=== PATIENT | female | born 1950 | race Caucasian/White ===

== ENCOUNTER 2021-08-09 09:09 | Day surgery (SDC) | payer BC, OTHER ==
[2021-08-02 14:23] VITALS: BMI 46.9
[2021-08-09] MEDS ORDERED: CELECOXIB 200 MG CAPSULE PO ONE (09:22)
[2021-08-09] MEDS ORDERED: MIDAZOLAM HCL 2 MG/2 ML SINGLE DOSE VIAL ONE ×2 (10:00→12:36)
[2021-08-09] MEDS ORDERED: BUPIVACAINE LIPOSOME/PF (EXPAREL) 266 MG/20 ML VIAL ONE (10:00)
[2021-08-09] MEDS ORDERED: SODIUM CHLORIDE 0.9% P/F 10 ML VIAL IJ ONE (10:01)
[2021-08-09] MEDS ORDERED: BUPIVACAINE HCL/PF 0.5% (5MG/ML) 10 ML VIAL ONE ×2 (10:01→10:44)
[2021-08-09] MEDS ORDERED: VANCOMYCIN 1,000 MG VIAL (RESTRICTED TO ID ONLY) ONE (10:31)
[2021-08-09] MEDS ORDERED: ceFAZolin SODIUM 1 GM VIAL ONE ×2 (10:31→21:28)
[2021-08-09] MEDS ORDERED: DEXMEDETOMIDINE HCL 200 MCG/2 ML IVPB ONE (10:44)
[2021-08-09] MEDS ORDERED: CEFAZOLIN 3 GM in DEXTROSE 5%-WATER - 100 ML IVPB ONE (11:00)
[2021-08-09] MEDS ORDERED: TRANEXAMIC ACID 1000 MG/10 ML VIAL IVPUSH ONE (11:00)
[2021-08-09] MEDS ORDERED: MAG HYDROX/AL HYDROX/SIMETH 30 ML UNIT-DOSE CUP PO PRN (11:51)
[2021-08-09] MEDS ORDERED: MAGNESIUM HYDROX 2400MG/30ML ORAL SUSPENSION 30 ML CUP PO PRN (11:51)
[2021-08-09] MEDS ORDERED: ONDANSETRON 4 MG/2 ML VIAL IVPUSH PRN (11:51)
[2021-08-09] MEDS ORDERED: LACTATED RINGERS SOLUTION 1,000 ML IV SCH (12:00)
[2021-08-09] MEDS ORDERED: VANCOMYCIN 1,000 MG VIAL (RESTRICTED TO ID ONLY) IVPB ONE (13:15)
[2021-08-09] MEDS: ACETAMINOPHEN 1000 MG/100 ML VIAL IVPB ONE ×2 (14:10→15:32)
[2021-08-09] MEDS: ACETAMINOPHEN 500 MG TABLET (FP) PO SCH ×2 (14:10→22:00)
[2021-08-09] MEDS: KETOROLAC TROMETHAMINE 30 MG/1 ML VIAL IVPUSH SCH ×3 (14:33→21:15)
[2021-08-09] MEDS ORDERED: ONDANSETRON 4 MG/2 ML VIAL ONE (14:48)
[2021-08-09] MEDS: GABAPENTIN 100 MG CAPSULE PO SCH ×2 (15:35→18:07)
[2021-08-09] MEDS: oxyCODONE HCL 5 MG TABLET PO PRN ×2 (17:29→18:07)
[2021-08-09] MEDS: CEFAZOLIN 2 GM in DEXTROSE 5%-WATER - 50 ML IVPB SCH (20:00)
[2021-08-09] MEDS ORDERED: DEXTROSE 5%-WATER - 50 ML IVPB ONE (21:28)
[2021-08-09] MEDS: GABAPENTIN 300 MG CAPSULE PO SCH (22:00)
[2021-08-09] MEDS: SENNOSIDES/DOCUSATE COMBO (SENNA PLUS) TABLET (UD) PO SCH (22:00)
[2021-08-09] MEDS ORDERED: PATIENT'S OWN MEDICATION (NON-FORMULARY) (Simvastatin 40 MG Tablet) PO SCH (22:00)
[2021-08-09] MEDS: ATORVASTATIN CA 20 MG TABLET (FP) PO SCH (22:00)
[2021-08-10] MEDS: oxyCODONE HCL 5 MG TABLET PO PRN ×3 (02:35→21:44)
[2021-08-10] MEDS: ACETAMINOPHEN 500 MG TABLET (FP) PO SCH ×4 (02:36→22:02)
[2021-08-10] MEDS ORDERED: DEXTROSE 5%-WATER - 50 ML IVPB ONE (03:03)
[2021-08-10] MEDS ORDERED: ceFAZolin SODIUM 1 GM VIAL ONE (03:03)
[2021-08-10] MEDS: CEFAZOLIN 2 GM in DEXTROSE 5%-WATER - 50 ML IVPB SCH (03:26)
[2021-08-10] MEDS: GABAPENTIN 300 MG CAPSULE PO SCH ×3 (06:37→21:40)
[2021-08-10] MEDS ORDERED: PATIENT'S OWN MEDICATION (NON-FORMULARY) (Losartan/Hydrochlorothiazide [Losartan-Hctz 100- PO SCH (10:00)
[2021-08-10] MEDS: SENNOSIDES/DOCUSATE COMBO (SENNA PLUS) TABLET (UD) PO SCH ×2 (10:44→21:40)
[2021-08-10] MEDS: LOSARTAN 50MG/HCTZ 12.5MG 1 TAB PO SCH (10:44)
[2021-08-10] MEDS: LOSARTAN POTASSIUM 50 MG TABLET PO SCH (10:45)
[2021-08-10] MEDS: MULTIVITAMINS (DAILY MVI) TABLET (FP) PO SCH (10:45)
[2021-08-10] MEDS: PANTOPRAZOLE 40 MG TABLET PO SCH (10:45)
[2021-08-10] MEDS: ASPIRIN 325 MG TABLET PO SCH (10:45)
[2021-08-10] MEDS: ATORVASTATIN CA 20 MG TABLET (FP) PO SCH (21:40)
[2021-08-11] MEDS: ACETAMINOPHEN 500 MG TABLET (FP) PO SCH ×4 (00:13→09:09)
[2021-08-11] MEDS: GABAPENTIN 300 MG CAPSULE PO SCH (05:15)
[2021-08-11] MEDS: oxyCODONE HCL 5 MG TABLET PO PRN ×2 (05:15→09:07)
[2021-08-11 06:14] VITALS: BP 123/68; PULSE 93; TEMP 100.2
[2021-08-11 08:21] LABS: HEMATOCRIT 34.7 % (32.4-45.2); HEMOGLOBIN 11.6 GM/dl (10.7-15.3); MCHC 33.4 g/dl (32.0-36.0); MEAN CELL VOLUME 83.8 fl (80-96); MEAN PLT VOLUME 10.5 fl (7.5-11.1); PLATELET COUNT 162 10^3/uL (134-434); RBC 4.13 M/mm3 (3.60-5.2); RDW 14.1 % (11.6-15.6); WHITE BLOOD COUNT 9.4 K/mm3 (4.0-10.8)
[2021-08-11] MEDS: LOSARTAN 50MG/HCTZ 12.5MG 1 TAB PO SCH (09:06)
[2021-08-11] MEDS: MULTIVITAMINS (DAILY MVI) TABLET (FP) PO SCH (09:06)
[2021-08-11] MEDS: SENNOSIDES/DOCUSATE COMBO (SENNA PLUS) TABLET (UD) PO SCH (09:06)
[2021-08-11] MEDS: ASPIRIN 325 MG TABLET PO SCH (09:07)
[2021-08-11] MEDS: PANTOPRAZOLE 40 MG TABLET PO SCH (09:07)
[2021-08-11] MEDS: LOSARTAN POTASSIUM 50 MG TABLET PO SCH (09:07)
== END 2021-08-11 11:55 | disposition home health service (06) ==
LOC: FASUSAT 09:09 → EDSTATUS 09:30 → FM/S 15:28 → FASUSAT 15:28
PROVIDERS: ATTEND Orthopaedic Surgery
PROC: 8E0YXBZ Computer Assisted Procedure of Lower Extremity (ICD-10-PCS; 2021-08-09)
PROC: 8E0Y0CZ Robotic Assisted Procedure of Lower Extremity, Open Approach (ICD-10-PCS; 2021-08-09)
PROC: 0SRC0J9 Replacement of Right Knee Joint with Synthetic Substitute, Cemented, Open Approach (ICD-10-PCS; principal; 2021-08-09 12:09)
DX: M17.11 Unilateral primary osteoarthritis, right knee (principal); I10 Essential (primary) hypertension; E78.5 Hyperlipidemia, unspecified; E66.9 Obesity, unspecified; Z68.42 Body mass index [BMI] 45.0-49.9, adult
CPT/HCPCS: 20985; 27447; C1776; S2900; 36415; 73560-TC-RT-FY; 85027; 94760; 97010-GP; 97116-GP; 97161-GP; J0131

== ENCOUNTER 2022-08-09 04:15 | Day surgery (SDC) | payer BC ==
[2022-08-07 15:15] VITALS: BMI 50.1
[~2022-08-09 04:15] MED LIST: ACETAMINOPHEN 325 MG TABLET (FP) PO PRN; BSS (NA/CA/MG/K) BALANCED SALT SOLUTION OPHTH SOLN 15 ML BOTTLE OS ONE; CHONDROITIN SU A/HYALUR SOD 1 KIT IO ONE; CYCLOPENTOLATE HCL 1% OPHTH SOLN 2 ML BOTTLE OP SCH; EPINEPHrine/PF 1 MG/1 ML (1:1,000) AMPULE SQ ONE; KETOROLAC TROMETHAMINE 0.5% EYE DROP 1 DROP DROPS OP SCH; LIDOCAINE HCL 1% PRESERVATIVE FREE - 30ML VIAL IO ONE; OFLOXACIN 0.3% OPHTHALMIC SOLUTION 5 ML BOTTLE OP SCH; PHENYLEPHRINE 2.5% OPHTH SOLN 15 ML BOTTLE OP SCH; POVIDONE-IODINE 5% OPHTHALMIC PREP 30 ML SOLUTION OS ONE; TETRACAINE 0.5% HCL 0.6ML DROPPER.BOTTLE OS ONE; TROPICAMIDE 1% OPHTH SOLN 15 ML BOTTLE OP SCH
[2022-08-09] MEDS ORDERED: TETRACAINE 0.5% OPHTH SOLN 2 ML BOTTLE ONE (07:16)
[2022-08-09] MEDS ORDERED: LIDOCAINE HCL/PF 1% SDV 5ML VIAL ONE (07:16)
[2022-08-09] MEDS ORDERED: POVIDONE-IODINE 5% OPHTHALMIC PREP 30 ML SOLUTION ONE (07:16)
[2022-08-09] MEDS ORDERED: KETOROLAC TROMETHAMINE 0.5% EYE DROP 1 DROP DROPS ONE (07:20)
[2022-08-09] MEDS ORDERED: CYCLOPENTOLATE HCL 1% OPHTH SOLN 2 ML BOTTLE ONE (07:20)
[2022-08-09] MEDS ORDERED: PHENYLEPHRINE 2.5% OPTHALMIC DROP BOTTLE ONE (07:21)
[2022-08-09] MEDS ORDERED: TROPICAMIDE 1% OPHTH SOLN 15 ML BOTTLE ONE (07:21)
[2022-08-09] MEDS ORDERED: OFLOXACIN 0.3% OPHTHALMIC SOLUTION 5 ML BOTTLE ONE (07:21)
[2022-08-09] MEDS ORDERED: KETOROLAC TROMETHAMINE 0.5% EYE DROP 1 DROP DROPS OS ONE ×3 (07:35→07:55)
[2022-08-09] MEDS ORDERED: TROPICAMIDE 1% OPHTH SOLN 15 ML BOTTLE OS ONE ×3 (07:35→07:55)
[2022-08-09] MEDS ORDERED: PHENYLEPHRINE 2.5% OPHTH SOLN 15 ML BOTTLE OS ONE ×3 (07:35→07:55)
[2022-08-09] MEDS ORDERED: CYCLOPENTOLATE HCL 1% OPHTH SOLN 2 ML BOTTLE OS ONE ×3 (07:35→07:55)
[2022-08-09] MEDS ORDERED: OFLOXACIN 0.3% OPHTHALMIC SOLUTION 5 ML BOTTLE OS ONE ×3 (07:35→07:55)
[2022-08-09] MEDS ORDERED: TETRACAINE 0.5% OPHTH SOLN 2 ML BOTTLE TP ONE (09:08)
[2022-08-09] MEDS ORDERED: TETRACAINE 0.5% HCL 0.6ML DROPPER.BOTTLE OS ONE (09:08)
[2022-08-09] MEDS ORDERED: MIDAZOLAM HCL 2 MG/2 ML SINGLE DOSE VIAL ONE (09:09)
[2022-08-09] MEDS ORDERED: POVIDONE-IODINE 5% OPHTHALMIC PREP 30 ML SOLUTION OS ONE (09:10)
[2022-08-09] MEDS ORDERED: BSS (NA/CA/MG/K) BALANCED SALT SOLUTION OPHTH SOLN 15 ML BOTTLE OS ONE ×2 (09:18)
[2022-08-09] MEDS ORDERED: LIDOCAINE HCL 1% PRESERVATIVE FREE - 30ML VIAL IO ONE ×2 (09:19)
[2022-08-09] MEDS ORDERED: CHONDROITIN SU A/HYALUR SOD 1 KIT IO ONE (09:20)
[2022-08-09] MEDS ORDERED: EPINEPHrine/PF 1 MG/1 ML (1:1,000) AMPULE SQ ONE (09:27)
[2022-08-09 12:08] VITALS: RESP 18
[2022-08-09 12:10] VITALS: BP 131/62; PULSE 80; TEMP 97.8
== END 2022-08-09 10:35 | disposition home or self-care (01) ==
LOC: JASU-SURG 04:15
PROVIDERS: ATTEND Ophthalmology
PROC: 08RK3JZ Replacement of Left Lens with Synthetic Substitute, Percutaneous Approach (ICD-10-PCS; principal; 2022-08-09 09:00)
DX: H26.9 Unspecified cataract (principal)

== ENCOUNTER 2023-02-06 04:36 | Day surgery (SDC) | payer BC ==
[2023-02-05 12:09] VITALS: BMI 49.1
[2023-02-06 07:53] VITALS: RESP 18
[2023-02-06] MEDS ORDERED: LIDOCAINE HCL 1% PRESERVATIVE FREE - 30ML VIAL IJ ONE (09:25)
[2023-02-06] MEDS ORDERED: BUPIVACAINE HCL/PF 0.75% 10 ML VIAL PNB ONE (09:26)
[2023-02-06] MEDS ORDERED: ACETAMINOPHEN 500 MG TABLET (FP) ONE (09:51)
[2023-02-06 09:55] VITALS: TEMP 98
[2023-02-06 10:30] VITALS: BP 159/82; PULSE 76
[2023-02-06] MEDS ORDERED: ACETAMINOPHEN 500 MG TABLET (FP) PO PRN (13:19)
== END 2023-02-06 10:31 | disposition home or self-care (01) ==
LOC: JASU-SURG 04:36
PROVIDERS: ATTEND Pain Medicine Pain Medicine
PROC: 3E0T33Z Introduction of Anti-inflammatory into Peripheral Nerves and Plexi, Percutaneous Approach (ICD-10-PCS; 2023-02-06)
PROC: 3E0T3BZ Introduction of Anesthetic Agent into Peripheral Nerves and Plexi, Percutaneous Approach (ICD-10-PCS; principal; 2023-02-06 10:45)
DX: M47.816 Spondylosis without myelopathy or radiculopathy, lumbar region (principal)
CPT/HCPCS: 76000-TC-FY

== ENCOUNTER 2023-02-27 06:00 | Day surgery (SDC) | payer BC ==
[~2023-02-27 06:00] MED LIST changes: -ACETAMINOPHEN 325 MG TABLET (FP) PO PRN; -BSS (NA/CA/MG/K) BALANCED SALT SOLUTION OPHTH SOLN 15 ML BOTTLE OS ONE; +BUPIVACAINE HCL/PF 0.75% 10 ML VIAL NR ONE; -CHONDROITIN SU A/HYALUR SOD 1 KIT IO ONE; -CYCLOPENTOLATE HCL 1% OPHTH SOLN 2 ML BOTTLE OP SCH; -EPINEPHrine/PF 1 MG/1 ML (1:1,000) AMPULE SQ ONE; -KETOROLAC TROMETHAMINE 0.5% EYE DROP 1 DROP DROPS OP SCH; +LIDOCAINE HCL 1% PRESERVATIVE FREE - 30ML VIAL IJ ONE; -LIDOCAINE HCL 1% PRESERVATIVE FREE - 30ML VIAL IO ONE; -OFLOXACIN 0.3% OPHTHALMIC SOLUTION 5 ML BOTTLE OP SCH; -PHENYLEPHRINE 2.5% OPHTH SOLN 15 ML BOTTLE OP SCH; -POVIDONE-IODINE 5% OPHTHALMIC PREP 30 ML SOLUTION OS ONE; -TETRACAINE 0.5% HCL 0.6ML DROPPER.BOTTLE OS ONE; -TROPICAMIDE 1% OPHTH SOLN 15 ML BOTTLE OP SCH
[2023-02-27 10:21] VITALS: RESP 18
[2023-02-27] MEDS ORDERED: BUPIVACAINE HCL/PF 0.75% 10 ML VIAL ONE (10:44)
[2023-02-27] MEDS ORDERED: BUPIVACAINE HCL/PF 0.75% 10 ML VIAL NR ONE (10:54)
[2023-02-27] MEDS ORDERED: LIDOCAINE HCL 1% PRESERVATIVE FREE - 30ML VIAL IJ ONE (10:54)
[2023-02-27 11:59] VITALS: BP 130/70; PULSE 70; TEMP 98.2
== END 2023-02-27 11:45 | disposition home or self-care (01) ==
LOC: JASU-SURG 06:00
PROVIDERS: ATTEND Pain Medicine Pain Medicine
PROC: 3E0T33Z Introduction of Anti-inflammatory into Peripheral Nerves and Plexi, Percutaneous Approach (ICD-10-PCS; 2023-02-27)
PROC: 3E0T3BZ Introduction of Anesthetic Agent into Peripheral Nerves and Plexi, Percutaneous Approach (ICD-10-PCS; principal; 2023-02-27 10:30)
DX: M47.816 Spondylosis without myelopathy or radiculopathy, lumbar region (principal)
CPT/HCPCS: 76000-TC-FY

== ENCOUNTER 2023-03-30 03:55 | Day surgery (SDC) | payer BC ==
[2023-03-27 15:38] VITALS: BMI 49.1
[~2023-03-30 03:55] MED LIST changes: -BUPIVACAINE HCL/PF 0.75% 10 ML VIAL NR ONE; +DEXAMETHASONE SOD PHOSPHATE 10 MG/1 ML VIAL IM ONE
[2023-03-30] MEDS ORDERED: LIDOCAINE HCL/PF 1% SDV 5ML VIAL ONE ×2 (07:22→07:23)
[2023-03-30] MEDS ORDERED: BUPIVACAINE HCL/PF 0.75% 10 ML VIAL ONE (07:22)
[2023-03-30] MEDS ORDERED: DEXAMETHASONE SOD PHOSPHATE 10 MG/1 ML VIAL ONE (07:23)
[2023-03-30 07:26] VITALS: RESP 20
[2023-03-30] MEDS ORDERED: ACETAMINOPHEN 500 MG TABLET (FP) PO PRN (09:05)
[2023-03-30] MEDS ORDERED: DEXAMETHASONE SOD PHOSPHATE 10 MG/1 ML VIAL IM ONE (09:10)
[2023-03-30] MEDS ORDERED: LIDOCAINE HCL 1% PRESERVATIVE FREE - 30ML VIAL IJ ONE (09:10)
[2023-03-30] MEDS ORDERED: IOHEXOL 180 MG/1 ML ML IJ ONE (09:10)
[2023-03-30 11:06] VITALS: BP 120/60; PULSE 80; TEMP 98
== END 2023-03-30 11:00 | disposition home or self-care (01) ==
LOC: JASU-SURG 03:55
PROVIDERS: ATTEND Pain Medicine Pain Medicine
PROC: 3E0R3BZ Introduction of Anesthetic Agent into Spinal Canal, Percutaneous Approach (ICD-10-PCS; 2023-03-30)
PROC: 3E0R33Z Introduction of Anti-inflammatory into Spinal Canal, Percutaneous Approach (ICD-10-PCS; principal; 2023-03-30 09:00)
DX: M54.16 Radiculopathy, lumbar region (principal); M48.061 Spinal stenosis, lumbar region without neurogenic claudication
CPT/HCPCS: 76000-TC-FY; J1100

== ENCOUNTER 2023-05-01 05:25 | Day surgery (SDC) | payer BC ==
[2023-04-30 12:07] VITALS: BMI 49.1
[~2023-05-01 05:25] MED LIST changes: +BUPIVACAINE HCL/PF 0.75% 10 ML VIAL NR ONE; -LIDOCAINE HCL 1% PRESERVATIVE FREE - 30ML VIAL IJ ONE; +LIDOCAINE HCL/PF 2% SDV 5ML VIAL INF ONE
[2023-05-01] MEDS ORDERED: BUPIVACAINE HCL/PF 0.75% 10 ML VIAL ONE (07:56)
[2023-05-01] MEDS ORDERED: LIDOCAINE HCL/PF 1% SDV 5ML VIAL ONE (07:56)
[2023-05-01 10:01] VITALS: RESP 20
[2023-05-01] MEDS ORDERED: LIDOCAINE HCL/PF 2% SDV 5ML VIAL ONE (11:04)
[2023-05-01] MEDS ORDERED: LIDOCAINE HCL 1% PRESERVATIVE FREE - 30ML VIAL IJ ONE (11:14)
[2023-05-01] MEDS ORDERED: LIDOCAINE HCL/PF 2% SDV 5ML VIAL INF ONE (11:23)
[2023-05-01] MEDS ORDERED: BUPIVACAINE HCL/PF 0.75% 10 ML VIAL NR ONE (11:32)
[2023-05-01] MEDS ORDERED: DEXAMETHASONE SOD PHOSPHATE 10 MG/1 ML VIAL IM ONE (11:32)
[2023-05-01 12:44] VITALS: BP 130/70; PULSE 70; TEMP 98
[2023-05-01] MEDS ORDERED: ACETAMINOPHEN 500 MG TABLET (FP) PO PRN (16:00)
== END 2023-05-01 12:30 | disposition home or self-care (01) ==
LOC: JASU-SURG 05:25
PROVIDERS: ATTEND Pain Medicine Pain Medicine
PROC: 015B3ZZ Destruction of Lumbar Nerve, Percutaneous Approach (ICD-10-PCS; principal; 2023-05-01 11:45)
DX: M47.816 Spondylosis without myelopathy or radiculopathy, lumbar region (principal)
CPT/HCPCS: 76000-TC-FY; J1100

== ENCOUNTER 2023-05-25 05:10 | Day surgery (SDC) | payer BC ==
[2023-05-23 14:54] VITALS: BMI 49.1
[2023-05-25] MEDS ORDERED: LIDOCAINE HCL/PF 2% SDV 5ML VIAL ONE (07:35)
[2023-05-25] MEDS ORDERED: BUPIVACAINE HCL/PF 0.75% 10 ML VIAL ONE (07:35)
[2023-05-25] MEDS ORDERED: LIDOCAINE HCL/PF 1% SDV 5ML VIAL ONE (07:36)
[2023-05-25] MEDS ORDERED: DEXAMETHASONE SOD PHOSPHATE 10 MG/1 ML VIAL ONE (07:36)
[2023-05-25 07:46] VITALS: RESP 20
[2023-05-25] MEDS ORDERED: BUPIVACAINE HCL/PF 0.75% 10 ML VIAL NR ONE (09:53)
[2023-05-25] MEDS ORDERED: DEXAMETHASONE SOD PHOSPHATE 10 MG/1 ML VIAL IVPUSH ONE (09:53)
[2023-05-25] MEDS ORDERED: LIDOCAINE HCL/PF 2% SDV 5ML VIAL SQ ONE ×2 (09:54)
[2023-05-25 10:32] VITALS: BP 113/46; PULSE 76; TEMP 98.1
[2023-05-25] MEDS ORDERED: ACETAMINOPHEN 500 MG TABLET (FP) PO PRN (12:59)
== END 2023-05-25 11:18 | disposition home or self-care (01) ==
LOC: JASU-SURG 05:10
PROVIDERS: ATTEND Pain Medicine Pain Medicine
PROC: 015B3ZZ Destruction of Lumbar Nerve, Percutaneous Approach (ICD-10-PCS; principal; 2023-05-25 09:30)
DX: M47.816 Spondylosis without myelopathy or radiculopathy, lumbar region (principal)
CPT/HCPCS: 76000-TC-FY; J1100

== ENCOUNTER 2023-07-17 04:15 | Day surgery (SDC) | payer BC ==
[2023-07-02 11:02] VITALS: BMI 31.2
[2023-07-17] MEDS ORDERED: LIDOCAINE HCL/PF 2% SDV 5ML VIAL ONE (07:49)
[2023-07-17] MEDS ORDERED: BUPIVACAINE HCL/PF 0.5% (5MG/ML) 10 ML VIAL ONE (07:50)
[2023-07-17] MEDS ORDERED: TRIAMCINOLONE ACET 40MG/1ML VIAL ONE (07:50)
[2023-07-17] MEDS ORDERED: SODIUM CHLORIDE 0.9% P/F 10 ML VIAL IJ ONE (08:00)
[2023-07-17 10:31] VITALS: RESP 20
[2023-07-17] MEDS ORDERED: LIDOCAINE 1% P/F 10 MG/ML VIAL INF ONE (12:38)
[2023-07-17] MEDS ORDERED: BUPIVACAINE HCL/PF 0.5% (5MG/ML) 10 ML VIAL NR ONE (12:38)
[2023-07-17] MEDS ORDERED: IOHEXOL 180 MG/1 ML ML IJ ONE (12:38)
[2023-07-17] MEDS ORDERED: ACETAMINOPHEN 500 MG TABLET (FP) PO PRN (12:57)
[2023-07-17 14:35] VITALS: BP 133/54; PULSE 78; TEMP 98.8
== END 2023-07-17 14:00 | disposition home or self-care (01) ==
LOC: JASU-SURG 04:15
PROVIDERS: ATTEND Pain Medicine Pain Medicine
PROC: 3E0U3GC Introduction of Other Therapeutic Substance into Joints, Percutaneous Approach (ICD-10-PCS; principal; 2023-07-17 12:15)
DX: M53.3 Sacrococcygeal disorders, not elsewhere classified (principal)
CPT/HCPCS: 76000-TC-FY

== ENCOUNTER 2023-09-04 04:38 | Day surgery (SDC) | payer BC ==
[2023-08-31 15:51] VITALS: BMI 31.1
[~2023-09-04 04:38] MED LIST changes: -BUPIVACAINE HCL/PF 0.75% 10 ML VIAL NR ONE; -DEXAMETHASONE SOD PHOSPHATE 10 MG/1 ML VIAL IM ONE; +LIDOCAINE HCL 1% PRESERVATIVE FREE - 30ML VIAL IJ ONE; +ceFAZolin SODIUM 1 GM VIAL IVPB ONE
[2023-09-04] MEDS ORDERED: BUPIVACAINE HCL/PF 0.5% (5MG/ML) 10 ML VIAL ONE (07:22)
[2023-09-04] MEDS ORDERED: DEXAMETHASONE SOD PHOSPHATE 10 MG/1 ML VIAL ONE ×2 (07:22→11:47)
[2023-09-04] MEDS ORDERED: LIDOCAINE HCL/PF 1% SDV 5ML VIAL ONE ×2 (07:22→11:46)
[2023-09-04] MEDS ORDERED: ACETAMINOPHEN 500 MG TABLET (FP) PO PRN (10:28)
[2023-09-04] MEDS ORDERED: LIDOCAINE HCL 1%, 10 MG/ML (20ML VIAL) ONE (11:46)
[2023-09-04] MEDS ORDERED: TRIAMCINOLONE ACET 40MG/1ML VIAL ONE (11:46)
[2023-09-04 12:03] VITALS: RESP 20
[2023-09-04] MEDS ORDERED: LIDOCAINE HCL/PF 2% SDV 5ML VIAL ONE (12:23)
[2023-09-04] MEDS ORDERED: MIDAZOLAM HCL 2 MG/2 ML SINGLE DOSE VIAL ONE ×2 (13:08→13:12)
[2023-09-04] MEDS ORDERED: ceFAZolin SODIUM 1 GM VIAL IVPB ONE (13:14)
[2023-09-04] MEDS ORDERED: ceFAZolin SODIUM 1 GM VIAL ONE (13:14)
[2023-09-04] MEDS ORDERED: LIDOCAINE HCL 1% PRESERVATIVE FREE - 30ML VIAL IJ ONE (13:16)
[2023-09-04] MEDS ORDERED: LIDOCAINE HCL/PF 2% SDV 5ML VIAL INF ONE (13:16)
[2023-09-04] MEDS ORDERED: ONDANSETRON 4 MG/2 ML VIAL ONE (13:48)
[2023-09-04 16:01] VITALS: BP 110/50; PULSE 70; TEMP 97.8
== END 2023-09-04 16:10 | disposition home or self-care (01) ==
LOC: JASU-SURG 04:38
PROVIDERS: ATTEND Pain Medicine Pain Medicine
PROC: 00HU3MZ Insertion of Neurostimulator Lead into Spinal Canal, Percutaneous Approach (ICD-10-PCS; principal; 2023-09-04 13:00)
DX: M96.1 Postlaminectomy syndrome, not elsewhere classified (principal); M54.16 Radiculopathy, lumbar region
CPT/HCPCS: 63650; C1897; 76000-TC-FY; C1889; J1100

== ENCOUNTER 2024-04-29 04:27 | Day surgery (SDC) | payer BC ==
[2024-04-21 17:47] VITALS: BMI 51.0
[2024-04-29] MEDS ORDERED: ONDANSETRON 4 MG/2 ML VIAL IVPUSH PRN (06:57)
[2024-04-29] MEDS ORDERED: ACETAMINOPHEN 325 MG TABLET (FP) PO PRN (06:57)
[2024-04-29] MEDS ORDERED: LACTATED RINGERS SOLUTION 1,000 ML IV SCH (07:00)
[2024-04-29] MEDS ORDERED: PROPOFOL 20 ML ONE (07:29)
[2024-04-29] MEDS ORDERED: MIDAZOLAM HCL 2 MG/2 ML SINGLE DOSE VIAL ONE (07:30)
[2024-04-29] MEDS ORDERED: SUCCINYLCHOLINE CHLORIDE 200 MG/10 ML SYRINGE ONE (07:30)
[2024-04-29] MEDS ORDERED: ACETAMINOPHEN INJECTION 100 ML IVPB ONE (07:34)
[2024-04-29] MEDS ORDERED: ceFAZolin SODIUM 1 GM VIAL ONE ×3 (07:47)
[2024-04-29] MEDS: ceFAZolin SODIUM 1 GM VIAL IVPB ONE (07:54)
[2024-04-29] MEDS ORDERED: oxyCODONE HCL 5 MG TABLET PO PRN (08:20)
[2024-04-29] MEDS ORDERED: DEXTROSE 5%-0.45% SALINE 1,000 ML IV SCH (08:30)
[2024-04-29 08:57] VITALS: RESP 18
[2024-04-29 10:32] VITALS: BP 130/79; PULSE 65; TEMP 97.6
== END 2024-04-29 10:45 | disposition home or self-care (01) ==
LOC: JASU-SURG 04:27
PROVIDERS: ATTEND Urology
PROC: 0TC08ZZ Extirpation of Matter from Right Kidney, Via Natural or Artificial Opening Endoscopic (ICD-10-PCS; principal; 2024-04-29 07:30)
PROC: 0T768DZ Dilation of Right Ureter with Intraluminal Device, Via Natural or Artificial Opening Endoscopic (ICD-10-PCS; 2024-04-29 07:30)
DX: N20.0 Calculus of kidney (principal)
CPT/HCPCS: 36415; 76000-TC-FY; 82360; 88300-TC; 94760; J0131

== ENCOUNTER 2025-01-09 05:17 | Day surgery (SDC) | payer BC ==
[2025-01-06 10:09] VITALS: BMI 48.7
[2025-01-09] MEDS ORDERED: DEXMEDETOMIDINE HCL 200 MCG/2 ML IVPB ONE (08:00)
[2025-01-09] MEDS ORDERED: MIDAZOLAM HCL 2 MG/2 ML SINGLE DOSE VIAL ONE (08:03)
[2025-01-09] MEDS: ceFAZolin SODIUM 1 GM VIAL IVPB ONE (08:18)
[2025-01-09] MEDS ORDERED: ONDANSETRON 4 MG/2 ML VIAL IVPUSH PRN (08:19)
[2025-01-09] MEDS ORDERED: oxyCODONE HCL 5 MG TABLET PO PRN (08:19)
[2025-01-09] MEDS: LIDOCAINE HCL 1% PRESERVATIVE FREE - 30ML VIAL IJ ONE (08:26)
[2025-01-09] MEDS ORDERED: LACTATED RINGERS SOLUTION 1,000 ML IV SCH (08:30)
[2025-01-09] MEDS: LIDOCAINE HCL/PF 2% SDV 5ML VIAL INF ONE (09:15)
[2025-01-09 12:20] VITALS: TEMP 97.1
[2025-01-09 12:21] VITALS: RESP 18
[2025-01-09] MEDS ORDERED: ACETAMINOPHEN 500 MG TABLET (FP) ONE (12:49)
[2025-01-09] MEDS: ACETAMINOPHEN 500 MG TABLET (FP) PO ONE (13:00)
[2025-01-09 14:06] VITALS: BP 101/58; PULSE 65
== END 2025-01-09 14:15 | disposition home or self-care (01) ==
LOC: JASU-SURG 05:17
PROVIDERS: ATTEND Pain Medicine Pain Medicine
PROC: 015 Peripheral Nervous System, Destruction (ICD-10-PCS; 2025-01-09)
PROC: 015B0ZZ Destruction of Lumbar Nerve, Open Approach (ICD-10-PCS; principal; 2025-01-09 08:00)
DX: M54.51 Vertebrogenic low back pain (principal)
CPT/HCPCS: 76000-TC-FY; 94760

== ENCOUNTER 2025-04-03 05:45 | Day surgery (SDC) | payer BC ==
[2025-04-01 17:22] VITALS: BMI 50.6
[2025-04-03] MEDS ORDERED: ACETAMINOPHEN 500 MG TABLET (FP) PO PRN (08:42)
[2025-04-03] MEDS ORDERED: GENTAMICIN SO4 80 MG/2 ML VIAL ONE (11:21)
[2025-04-03] MEDS ORDERED: VANCOMYCIN 1,000 MG VIAL (RESTRICTED TO ID ONLY) ONE ×2 (11:21→14:06)
[2025-04-03] MEDS ORDERED: LIDOCAINE HCL/PF 1% SDV 5ML VIAL ONE (11:22)
[2025-04-03] MEDS ORDERED: LIDOCAINE 1%/EPI 1:100000 (20 ML MULTI DOSE VIAL) ONE (11:22)
[2025-04-03] MEDS ORDERED: MIDAZOLAM HCL 2 MG/2 ML SINGLE DOSE VIAL ONE ×2 (11:52→14:02)
[2025-04-03] MEDS ORDERED: PROPOFOL 20 ML ONE ×2 (11:52→14:10)
[2025-04-03] MEDS ORDERED: DEXTROSE 50%-WATER 25 GM/50 ML DISP.SYRIN ONE (11:54)
[2025-04-03] MEDS ORDERED: SUCCINYLCHOLINE CHLORIDE 200 MG/10 ML SYRINGE ONE (11:54)
[2025-04-03] MEDS ORDERED: ONDANSETRON 4 MG/2 ML VIAL ONE (11:54)
[2025-04-03] MEDS ORDERED: DEXMEDETOMIDINE HCL 200 MCG/2 ML IVPB ONE (12:11)
[2025-04-03] MEDS ORDERED: LACTATED RINGERS SOLUTION 1,000 ML IV SCH (16:00)
[2025-04-03 17:51] VITALS: RESP 16
[2025-04-03 18:50] VITALS: BP 135/72; PULSE 66; TEMP 96.2
== END 2025-04-03 19:00 | disposition home or self-care (01) ==
LOC: JASU-SURG 05:45
PROVIDERS: ATTEND Pain Medicine Pain Medicine
PROC: 0JH73MZ Insertion of Stimulator Generator into Back Subcutaneous Tissue and Fascia, Percutaneous Approach (ICD-10-PCS; 2025-04-03)
PROC: 00PV3MZ Removal of Neurostimulator Lead from Spinal Cord, Percutaneous Approach (ICD-10-PCS; 2025-04-03)
PROC: 00HV3MZ Insertion of Neurostimulator Lead into Spinal Cord, Percutaneous Approach (ICD-10-PCS; 2025-04-03)
PROC: 0JPT0MZ Removal of Stimulator Generator from Trunk Subcutaneous Tissue and Fascia, Open Approach (ICD-10-PCS; principal; 2025-04-03 12:37)
DX: G89.4 Chronic pain syndrome (principal); M54.16 Radiculopathy, lumbar region; M48.061 Spinal stenosis, lumbar region without neurogenic claudication
CPT/HCPCS: 63663; 63688; C1767; C1778; 76000-TC-FY; 94760